=== PATIENT | female | born 1995 | race Two or more races ===

== ENCOUNTER 2018-11-06 16:27 | Observation (INO) | payer MEDICAID ==
[~2018-11-06] VITALS: Ht 165.1 cm; Wt 87.5 kg
[2018-11-06 18:32] LABS: CLARITY URINE CLEAR (CLEAR); COLOR URINE YELLOW (YELLOW); KETONES URINE NEGATIVE (NEGATIVE); LEUKOCYTE ESTERASE URINE 2+ (NEGATIVE); NITRITE URINE NEGATIVE (NEGATIVE); OCCULT BLOOD URINE NEGATIVE (NEGATIVE); PROTEIN URINE NEGATIVE (NEGATIVE); SPECIFIC GRAVITY URINE 1.012 (1.005-1.030)
== END 2018-11-06 20:20 | disposition home or self-care (01) ==
LOC: 8 EST A/PP 16:27 → 8 EST LDRP 17:04
PROVIDERS: ADMIT Specialist; ATTEND Specialist
DX: O42.90 Premature rupture of membranes, unspecified as to length of time between rupture and onset of labor, unspecified weeks of gestation (principal); Z3A.00 Weeks of gestation of pregnancy not specified
CPT/HCPCS: 76815; 76818; 81003; 99281; G0378

== ENCOUNTER 2018-12-19 22:28 | Observation (INO) | payer MEDICAID ==
[~2018-12-19] VITALS: Ht 165.1 cm; Wt 88.5 kg
[2018-12-20] MEDS ORDERED: PRENATAL VITAMINS (01:17)
== END 2018-12-20 01:30 | disposition home or self-care (01) ==
LOC: 8 EST LDRP 22:28
PROVIDERS: ADMIT Specialist; ATTEND Specialist
DX: O62.9 Abnormality of forces of labor, unspecified (principal); Z3A.39 39 weeks gestation of pregnancy
CPT/HCPCS: 99281; G0378

== ENCOUNTER 2018-12-20 11:52 | Inpatient (IN) | payer OTHER ==
[~2018-12-20] VITALS: Ht 165.1 cm; Wt 90.7 kg
[~2018-12-20 11:52] MED LIST: PRENATAL VITAMINS
[2018-12-20] MEDS ORDERED: LACTATED RINGERS 1,000 ML IV SCH ×2 (12:30→14:30)
[2018-12-20] MEDS ORDERED: LIDOCAINE HCL 1% 20ML VIAL (Pyxis) INJ INFIL SCH (14:15)
[2018-12-20] MEDS ORDERED: METHYLERGONOVINE MALEATE 0.2 MG/ML IM PRN (14:15)
[2018-12-20] MEDS ORDERED: NALOXONE HCL 0.4 MG/ML 1ML VIAL IM PRN (14:15)
[2018-12-20] MEDS ORDERED: CARBOPROST TROMETHAMINE 250 MCG/ML AMPUL IM PRN (14:15)
[2018-12-20] MEDS ORDERED: DEXT 5%/LR + PITOCIN 20UNITS/L 1,000 ML IV SCH ×2 (14:30→17:03)
[2018-12-20] MEDS ORDERED: ONDANSETRON HCL 4MG/2ML INJ IV PRN (14:30)
[2018-12-20] MEDS: BUTORPHANOL TARTRATE 2 MG/ML VIAL IV PRN ×2 (14:34→16:18)
[2018-12-20 14:44] LABS: BASOPHILS % 0.8 % (0.0-2.0); EOSINOPHILS % 0.7 % (0.0-5.0); HEMATOCRIT. 33.7 % (36.0-48.0); HEMOGLOBIN. 10.5 g/dL (12.0-16.0); LYMPHOCYTES % 18.6 % (20.0-50.0); MEAN CORPUSCULAR HEMOGLOBIN 20.5 pg (28.0-32.0); MEAN CORPUSCULAR VOLUME 65.9 fL (81.0-99.0); MONOCYTES % 8.4 % (2.0-8.0); NEUTROPHILS % 71.5 % (40.0-76.0); RED BLOOD CELL COUNT 5.12 mill/uL (4.2-5.4); RED CELL DISTRIBUTION WIDTH 15.7 % (11.6-14.6)
[2018-12-20 14:54] LABS: INR 0.9; PARTIAL THROMBOPLASTIN TIME 28.5 sec (23.4-31.0); PROTHROMBIN TIME 9.4 sec (9.6-11.0)
[2018-12-20] MEDS ORDERED: PENICILLIN G POTASSIUM 5 MMU in DEXT 5% WATER 100 ML IV ONE (15:00)
[2018-12-20] MEDS ORDERED: ROPIVACAINE HCL/PF 0.2% (2MG/ML) EPID 200ML EPI PRN (15:27)
[2018-12-20 15:38] LABS: HEPATITIS B SURFACE ANTIGEN NEGATIVE
[2018-12-20] MEDS ORDERED: FENTANYL CITRATE/PF 50MCG/ML 2ML VIAL ONE (15:59)
[2018-12-20] MEDS ORDERED: ACETAMINOPHEN WITH CODEINE 300/30MG TABLET PO PRN (17:15)
[2018-12-20] MEDS ORDERED: GLYCERIN/WITCH HAZEL LEAF MEDICATED PAD TOP PRN (17:15)
[2018-12-20] MEDS ORDERED: LANOLIN OINT 7GM TUBE TOP PRN (17:15)
[2018-12-20] MEDS ORDERED: IBUPROFEN 400MG TABLET PO PRN (17:15)
[2018-12-20] MEDS ORDERED: BISACODYL 10MG SUPP PR PRN (17:15)
[2018-12-20] MEDS ORDERED: TETANUS, DIPHTHERIA, PERTUSSIS VAC/PF 0.5ML (>7YR OLD) IM ONE (17:15)
[2018-12-20] MEDS ORDERED: DIPHENHYDRAMINE 25MG CAPSULE PO PRN (17:15)
[2018-12-20] MEDS ORDERED: HEMORRHOIDAL SUPP PR PRN (17:15)
[2018-12-20] MEDS ORDERED: INFLUENZA VIRUS VACCINE(AFLURIA) 0.5ML SYR IM ONE (17:15)
[2018-12-20 17:33] LABS: PLATELET ESTIMATE NORMAL
[2018-12-20 17:34] LABS: PLATELET 213 x1000/uL (130-400)
[2018-12-20 18:15] VITALS: BP 121/74
[2018-12-20 18:40] VITALS: BP 125/74
[2018-12-20] MEDS ORDERED: PENICILLIN G POTASSIUM 2.5 MMU in DEXTROSE 5% WATER 50 ML IV SCH (19:00)
[2018-12-20 19:05] VITALS: BP 119/75
[2018-12-20] MEDS: DOCUSATE SODIUM 100MG CAPSULE PO SCH (21:06)
[2018-12-20] MEDS: MAGNESIUM/ALUMINUM HYDROXIDE/SIMETHICONE 30ML UDC PO SCH (21:07)
[2018-12-20] MEDS: SIMETHICONE 80MG TABLET CHEW PO SCH (21:07)
[2018-12-20] MEDS: IBUPROFEN 800MG TABLET PO PRN (21:23)
[2018-12-20 23:28] LABS: CLARITY URINE CLEAR (CLEAR); COLOR URINE YELLOW (YELLOW); KETONES URINE 2+ (NEGATIVE); LEUKOCYTE ESTERASE URINE NEGATIVE (NEGATIVE); NITRITE URINE NEGATIVE (NEGATIVE); OCCULT BLOOD URINE NEGATIVE (NEGATIVE); PH URINE 7.5 (4.5-8.0); PROTEIN URINE 2+ (NEGATIVE); SPECIFIC GRAVITY URINE 1.022 (1.005-1.030)
[2018-12-20 23:40] VITALS: BP 113/74
[2018-12-21] MEDS: IBUPROFEN 800MG TABLET PO PRN (03:54)
[2018-12-21 04:00] VITALS: BP 122/70
[2018-12-21] MEDS ORDERED: FERROUS SULFATE 325MG TABLET PO SCH (07:30)
[2018-12-21 07:55] LABS: BASOPHILS % 0.3 % (0.0-2.0); EOSINOPHILS % 0.3 % (0.0-5.0); HEMATOCRIT. 30.1 % (36.0-48.0); HEMOGLOBIN. 9.3 g/dL (12.0-16.0); LYMPHOCYTES % 15.2 % (20.0-50.0); MEAN CORPUSCULAR HEMOGLOBIN 20.2 pg (28.0-32.0); MEAN CORPUSCULAR VOLUME 65.4 fL (81.0-99.0); MEAN PLATELET VOLUME 10.3 fl (7.4-10.4); MONOCYTES % 8.9 % (2.0-8.0); NEUTROPHILS % 75.3 % (40.0-76.0); PLATELET 192 x1000/uL (130-400); RED BLOOD CELL COUNT 4.61 mill/uL (4.2-5.4); RED CELL DISTRIBUTION WIDTH 15.4 % (11.6-14.6)
[2018-12-21 08:00] VITALS: BP 104/56
[2018-12-21] MEDS ORDERED: PRENATAL VIT/FE FUMARATE/FA TABLET PO SCH (09:00)
[2018-12-21 10:19] LABS: *AMPHETAMINES SCREEN URINE NEGATIVE (NEGATIVE); *BARBITURATES SCREEN URINE NEGATIVE (NEGATIVE); *BENZODIAZEPINES SCREEN URINE NEGATIVE (NEGATIVE); *COCAINE SCREEN URINE NEGATIVE (NEGATIVE); METHADONE URINE SCREEN NEGATIVE (NEGATIVE); OPIATES URINE SCREEN NEGATIVE (NEGATIVE)
[2018-12-21 10:20] LABS: CANNABINOID URINE SCREEN NEGATIVE (NEGATIVE); PHENCYCLIDINE URINE SCREEN NEGATIVE (NEGATIVE)
[2018-12-21 16:56] VITALS: BP 112/67
[2018-12-21 19:30] VITALS: BP 110/63
[2018-12-21] MEDS: DOCUSATE SODIUM 100MG CAPSULE PO SCH (20:36)
[2018-12-21] MEDS: SIMETHICONE 80MG TABLET CHEW PO SCH ×2 (20:36→21:00)
[2018-12-21] MEDS: MAGNESIUM/ALUMINUM HYDROXIDE/SIMETHICONE 30ML UDC PO SCH (21:00)
[2018-12-22 03:30] VITALS: BP 103/65
[2018-12-22 08:00] VITALS: BP 101/74
[2018-12-22] MEDS: IBUPROFEN 800MG TABLET PO PRN (08:02)
[2018-12-22] MEDS: SIMETHICONE 80MG TABLET CHEW PO SCH (08:03)
[2018-12-22] MEDS: MAGNESIUM/ALUMINUM HYDROXIDE/SIMETHICONE 30ML UDC PO SCH (08:03)
[2018-12-22] MEDS ORDERED: PREN1COM12 MT (15:16)
[2018-12-22] MEDS ORDERED: FERR325T23 PO (15:16)
[2018-12-22] MEDS ORDERED: HYDR-4001 MT (15:16)
== END 2018-12-22 11:00 | disposition home or self-care (01) | DRG 560 ==
LOC: OBSVTOIN 11:52 → 8 EST LDRP 11:52 → 8EST 17:57
PROVIDERS: ADMIT Specialist; ATTEND Specialist
PROC: 10E0XZZ Delivery of Products of Conception, External Approach (ICD-10-PCS; principal; 2018-12-20)
DX: O77.0 Labor and delivery complicated by meconium in amniotic fluid (principal); D64.9 Anemia, unspecified; O69.81X0 Labor and delivery complicated by cord around neck, without compression, not applicable or unspecified; O99.02 Anemia complicating childbirth; Z3A.40 40 weeks gestation of pregnancy; Z37.0 Single live birth
CPT/HCPCS: 36415; 80305; 81003; 86592; 86703; 86762; 86850; 86900; 87340; 96360; 99281; J0595; J2310; J2405; J2540; J2590; J2795; J3010; J3490; J7060; J7120; A4315